=== PATIENT | male | born 1935 | race Caucasian/White ===

== ENCOUNTER 2019-02-22 17:01 | Emergency (ER) | payer MEDICARE, BC ==
[~2019-02-22] VITALS: Ht 193 cm; Wt 109.0 kg
[2019-02-22] MEDS ORDERED: PLEASE ENTER ALLERGIES MC SCH (17:30)
[2019-02-22] MEDS ORDERED: VANCOMYCIN PER PHARMACY MC ONE (17:30)
--- NOTE | 2019-02-22 17:40 | NUR ---
Jose dozier in ED - 02/22/19 at 1809 by CHLOE SRINIVASAN COLLECTED AND SENT. BLADDER SCAN COMPLETED 19ML. PT TO D/C HOME.
[2019-02-22 17:41] LABS: BASOPHILS # (AUTO) 0.03 x10^3/uL (0-0.1); BASOPHILS % (AUTO) 1 % (0-1); EOSINOPHILS # (AUTO) 0.72 x10^3/uL (0-0.4); EOSINOPHILS % (AUTO) 10 % (1-7); LYMPHOCYTES # (AUTO) 2.11 x10^3/uL (1-3.4); LYMPHOCYTES % (AUTO) 30 % (22-44); MD NO; MEAN CORPUSCULAR HGB CONC 32.5 g/dL (33.2-36.2); MEAN PLATELET VOLUME 7.5 fL (7.4-10.4); MONOCYTES # (AUTO) 0.72 x10^3/uL (0.2-0.8); MONOCYTES % (AUTO) 10 % (2-9); NEUTROPHILS # (AUTO) 3.43 x10^3/uL (1.8-6.8); NEUTROPHILS % (AUTO) 49 % (42-75); PLATELET COUNT 241 x10^3/uL (130-400); RED BLOOD COUNT 5.21 x10^6/uL (4.38-5.82); RED CELL DISTRIBUTION WIDTH 15.7 % (9.4-14.8)
[2019-02-22] MEDS ORDERED: RISP0.253 PO (17:42)
[2019-02-22] MEDS ORDERED: TAMS-11 PO (17:42)
[2019-02-22] MEDS ORDERED: SIMV20TA3 PO (17:42)
[2019-02-22] MEDS ORDERED: METF500T17 PO (17:42)
[2019-02-22] MEDS ORDERED: SENN-52 PO (17:42)
[2019-02-22] MEDS ORDERED: ACET650S21 PO (17:42)
[2019-02-22] MEDS ORDERED: METO25TA35 PO (17:42)
[2019-02-22 17:53] LABS: ALANINE AMINOTRANSFERASE 15 U/L (12-78); ALBUMIN 3.2 g/dL (3.4-5.0); ANION GAP 6 mmol/L (5-15); CHLORIDE 108 mmol/L (98-107); CREATININE 1.07 mg/dL (0.7-1.3)
[2019-02-22 17:54] LABS: INTERNATIONAL NORMALIZED RATIO 1.01 (0.93-1.1); PROTHROMBIN TIME 10.6 Seconds (9.6-11.5)
[2019-02-22 17:56] LABS: ALKALINE PHOSPHATASE 108 U/L (45-117); BILIRUBIN,TOTAL 0.6 mg/dL (0.2-1.0); TOTAL PROTEIN 7.6 g/dL (6.4-8.2)
--- NOTE | 2019-02-22 17:58 | NUR ---
PIV ESTABLISHED, BC DRAWN X 1 DRAWN
[2019-02-22] MEDS ORDERED: VANCOMYCIN 2,000 MG in SODIUM CHLORIDE 0.9% 500 ML IV ONE (18:30)
--- NOTE | 2019-02-22 18:53 | NUR ---
REPORT RECEIVED FROM LUZ MARINA DAY.
--- NOTE | 2019-02-22 18:53 | NUR ---
REPORT TO YOHANNES DAY
[2019-02-22 19:33] VITALS: BP 107/71
--- NOTE | 2019-02-22 19:59 | NUR ---
VANCO IS STILL INFUSING AT THIS TIME. PT TALKING BY HIMSELF.
--- NOTE | 2019-02-22 20:36 | NUR ---
report given to jaylin lawrence([email or web address]). all questions answered.
--- NOTE | 2019-02-22 20:36 | NUR ---
Transport via [facility] set up with Melissa at [facility] Accepting Doctor: Debra Accepting Med Tech: Karlie Patient ready now Insurance Medicare and [facility] so no MTM required ETA via [facility] [id number] Report already called by primary RN Awaiting [facility] at this time
== END 2019-02-22 21:50 ==
LOC: ED 17:19
DX: I82.531 Chronic embolism and thrombosis of right popliteal vein (principal); L03.90 Cellulitis, unspecified; I10 Essential (primary) hypertension; E11.9 Type 2 diabetes mellitus without complications; E78.00 Pure hypercholesterolemia, unspecified; G30.9 Alzheimer's disease, unspecified
CPT/HCPCS: 36415; 71045; 73590; 80053; 83605; 85025; 85610; 85730; 87040; 93005; 93971; 96365; 96366; 99284; J3370; J7040